=== PATIENT | male | born 2000 | race Two or more races ===

== ENCOUNTER 2023-06-28 08:15 | Outpatient (CLI) | payer OTHER, SELFPAY ==
--- NOTE | 2023-06-28 08:27 | XR_ITS ---
FINAL REPORT CLINICAL HISTORY: Foot pain FINDINGS: LEFT FOOT Three views of the left foot demonstrate no acute fracture or dislocation. The visualized joint spaces are normally aligned. The soft tissues are unremarkable. IMPRESSION: No acute bony abnormality. Reviewed, Interpreted and Dictated by Víctor Wolf MD Transcribed by Melissa Bowden Authenticated and . [facility]
--- NOTE | 2023-06-28 08:27 | XR_ITS ---
FINAL REPORT CLINICAL HISTORY: Foot Pain FINDINGS: RIGHT FOOT 3 views of the right foot were obtained. There is no acute fracture or dislocation. Visualized joint spaces are normally aligned. Soft tissues are unremarkable. IMPRESSION: No acute bony abnormality. Reviewed, Interpreted and Dictated by Víctor Wolf MD Transcribed by Melissa Bowden Authenticated and [facility]
== END 2023-06-28 23:59 ==
LOC: RAD 08:18
PROVIDERS: Visit Provider Podiatrist
DX: M79.671 Pain in right foot (principal); M79.672 Pain in left foot
CPT/HCPCS: 73630

== ENCOUNTER 2023-10-04 10:41 | Outpatient (CLI) | payer OTHER, SELFPAY ==
--- NOTE | 2023-10-04 | CA_ITS ---
FINAL REPORT TECHNIQUE: Spectral and color Doppler exam CLINICAL HISTORY: HTN,SMOKER COMPARISON: None FINDINGS: DOPPLER RENAL VESSELS HISTORY: Hypertension . FINDINGS: Intrarenal resistive indices on the right are 0.44, 0.54, and 0.46, normal . Intrarenal resistive indices on the left are 0.59, 0.53, and 0.61, normal . Renal size is normal and symmetric. Right main renal artery systolic velocity: 165 cm/sec. Aortic-right renal artery flow velocity ratio: 0.73 COMMENT: No evidence of hemodynamically significant renal artery stenosis . Left main renal artery systolic velocity: 136 cm/sec. Aortic-left renal artery flow velocity ratio: 0.6 COMMENT: No evidence of hemodynamically significant renal artery stenosis . IMPRESSION: No evidence of hemodynamically significant renal artery stenosis CTA or gadolinium-enhanced MR may be considered as a more sensitive exam. Alternatively noncontrast MRI may be considered for assessing main renal arteries for stenosis as a more sensitive exam if the patient has renal insufficiency. Reviewed, Interpreted and Dictated by Anand Narayan MD Transcribed by Mely Mcmillan Authenticated and [facility]
== END 2023-10-04 23:59 | disposition home or self-care (01) ==
LOC: RT 10:47
PROVIDERS: PCP Nurse Practitioner Family; Visit Provider Nurse Practitioner Family
DX: I10 Essential (primary) hypertension (principal); F17.290 Nicotine dependence, other tobacco product, uncomplicated
CPT/HCPCS: 93976

== ENCOUNTER 2023-10-20 10:44 | Outpatient (CLI) | payer OTHER, SELFPAY ==
[2023-10-20 11:19] LABS: Basophils % 0.5 % (0.1-2.0); Eosinophils # 0.3 K/mm3 (0.0-0.4); Hematocrit 42.8 % (42.0-52.0); Hemoglobin 14.4 g/dL (14.1-18.0); Lymphocytes # 1.9 K/mm3 (0.7-4.5); Lymphocytes % 22.7 % (10-50); Mean Corpuscular HGB Conc 33.5 g/dL (31.8-35.4); Mean Corpuscular Hemoglobin 28.1 pg (27.0-31.2); Mean Corpuscular Volume 83.7 fl (80-94); Mean Platelet Volume 8.8 fl (7.4-10.4); Monocytes # 0.5 K/mm3 (0.1-1.0); Monocytes % 5.7 % (1.7-9.3); Neutrophils # 5.5 K/mm3 (1.8-7.8); Neutrophils % 67.2 % (37.0-80.0); Platelet Count 335 K/mm3 (142-424); Red Blood Count 5.12 M/mm3 (4.60-6.20); Red Cell Distribution Width 13.9 % (11.5-17.5); White Blood Count 8.2 K/mm3 (4.8-10.8)
[2023-10-20 11:44] LABS: Chloride 105 mmol/L (98-107); Potassium 4.3 mmoL/L (3.5-5.1); Sodium 140 mmol/L (136-145)
[2023-10-20 11:46] LABS: Alanine Aminotransferase 61 U/L (12-78); Albumin Level 4.4 g/dl (3.5-5.0); Alkaline Phosphatase 103 U/L (38-126); Anion Gap 10.3 mEq/L (5-15); Aspartate Amino Transferase 41 U/L (17-59); Bilirubin,Direct 0.2 mg/dl (0.0-0.4); Bilirubin,Indirect 0.1 mg/dL (0.0-0.9); Bilirubin,Total 0.3 mg/dl (0.2-1.3); Bilirubin,Unconjugated 0.1 mg/dL (0.0-1.1); Blood Urea Nitrogen 16 mg/dl (9-20); Carbon Dioxide 29 mmol/L (22.0-30.0); Cholesterol 269 mg/dl (140-200); Estimated Glomerular Filt Rate 104 ml/min (>60); GFR (African American) 125 ML/MIN (>60); Total Protein,Serum 7.5 g/dl (6.3-8.2); Triglycerides 287 mg/dl (30-150); VLDL Cholesterol 57 mg/dL (0-40)
[2023-10-20 11:47] LABS: Calcium 9.8 mg/dl (8.4-10.2); Chol/HDL Ratio 7.9 (1-3.5); Glucose 85 mg/dl (74-100); HDL Cholesterol 34 mg/dl (40-60)
[2023-10-20 12:04] LABS: Direct LDL Cholesterol 164.49 mg/dL (100-129)
[2023-10-20 12:06] LABS: Free T4 (Free Thyroxine) 0.91 ng/dl (0.78-2.19)
[2023-10-20 12:19] LABS: Thyroid Stimulating Hormone 0.85 uIU/mL (0.465-4.68)
== END 2023-10-20 23:59 | disposition home or self-care (01) ==
LOC: LAB 10:49
PROVIDERS: PCP Nurse Practitioner Family; Visit Provider Nurse Practitioner
DX: I10 Essential (primary) hypertension (principal); R07.9 Chest pain, unspecified; R94.31 Abnormal electrocardiogram [ECG] [EKG]
CPT/HCPCS: 36415; 80048; 80061; 80076; 83735; 84439; 84443; 85025

== ENCOUNTER 2023-11-02 10:36 | Outpatient (CLI) | payer OTHER, SELFPAY ==
--- NOTE | 2023-11-02 10:37 | CA_ITS ---
APPROVED REPORT EXAM: Comprehensive 2D, Doppler, and color-flow Echocardiogram Network Intern: Monika Marino RT(R) Ht: 6 ft 1 in Wt: 285lbs BSA: 2.50 BP: 136/75 mmHg Indications: CP, HTN, fatigue, LOPEZ, obesity, vapes, Abn EKG 2D Dimensions LA Volume 39.90 mL LA Volume Index 15.96 mL/m2 (M/F) 16-34 EF AP2 38.7 % GL Strain -10.9 % M-Mode Dimensions RVDd 2.82 cm (0.9-2.6) LA Diam 2.98 cm (1.9-4.0) LVDd 5.18 cm (3.5-5.7) LVDs 3.82 cm (3.5-5.7) IVSd 1.21 cm (0.6-1.1) PWd 0.79 cm (0.6-1.1) EF (Teich) 51.20% FS 26.30% EDV (Teich) 128.40 mL ESV (Teich) 62.70 mL LV Diastology E Decel Time 330 (160-240 msec) E/A Ratio 2.0 Mitral Valve MV E Max Floyd. 88.0 (40-130 cm/s) MV A Velocity 43.0 (40-130 cm/s) E/A Ratio 2.06 MV PHT 97.0 ms Left Ventricle The left ventricle is normal size. The left ventricular systolic function is normal. The left ventricular ejection fraction is within the normal range. There is normal left ventricular wall thickness. There is normal LV segmental wall motion. The left ventricular diastolic function is normal. LVEF is 60%. Right Ventricle The right ventricle is normal size. The right ventricular systolic function is normal. Atria The left atrium size is normal. The right atrium size is normal. There is no Doppler evidence of interatrial shunt. Aortic Valve The aortic valve is normal in structure. There is no aortic valvular stenosis. No aortic regurgitation is present. Mitral Valve The mitral valve is normal in structure. No evidence of mitral valve stenosis. There is no mitral valve regurgitation noted. Tricuspid Valve The tricuspid valve leaflets are thin and pliable. Trace tricuspid regurgitation. There is insufficient TR jet to estimate RVSP. Pulmonic Valve The pulmonary valve is normal in structure. Trace pulmonic regurgitation. Great Vessels The aortic root is normal in size. The ascending aorta is normal in size. IVC is normal in size and collapses >50% with inspiration. Pericardium There is no pericardial effusion. Other Information Study Quality: Adequate Conclusion Normal biventricular systolic function. No significant valvular stenosis or regurgitation. Electronically signed by : Lynn Barroso MD 11/08/2023 11:31:49
== END 2023-11-02 23:59 | disposition home or self-care (01) ==
LOC: RT 10:37
PROVIDERS: PCP Nurse Practitioner Family; Visit Provider Nurse Practitioner
DX: R07.9 Chest pain, unspecified (principal); I10 Essential (primary) hypertension; R94.31 Abnormal electrocardiogram [ECG] [EKG]
CPT/HCPCS: 93306

== ENCOUNTER 2024-05-19 09:54 | Outpatient (CLI) | payer OTHER, SELFPAY ==
--- NOTE | 2024-05-19 09:56 | NM_ITS ---
FINAL REPORT CLINICAL HISTORY: nausea/epigastric pain/postprandial urgency FINDINGS: Sequential anterior projection images of the abdomen were obtained after the intravenous injection of 8.39 mCi technetium 99m Choletec. There is normal uptake of radiotracer by the liver. The bile ducts are visualized by 5 minutes. Gallbladder activity is seen by 35 minutes. Bowel activity is noted by 5 minutes. After 1 hour, 2.6 ?g of CCK was injected intravenously for calculation of gallbladder ejection fraction. The gallbladder ejection fraction is 24%, which is within normal limits. IMPRESSION: No evidence of cystic duct or bile duct obstruction. Abnormal gallbladder ejection fraction of 24%, which is nonspecific but can be seen with chronic cholecystitis. Reviewed, Interpreted and Dictated by Devon Morton III, MD Transcribed by Mely Mcmillan Authenticated and [facility]
[2024-05-19] MEDS: SINCALIDE IV (11:30)
[2024-05-19] MEDS: SODIUM CHLORIDE 0.9% IV (11:30)
[2024-05-19] MEDS: SODIUM CHLORIDE 0.9% 10ML SYR (RAD ONLY) 10 ML IV (12:36)
[2024-05-19] MEDS: ISOTOPE CHOLETECH;1 DOSE (UP TO 15 MCI) IV (12:36)
== END 2024-05-19 23:59 | disposition home or self-care (01) ==
LOC: RAD 09:56
PROVIDERS: PCP Nurse Practitioner Family; Visit Provider Nurse Practitioner Family
DX: R15.2 Fecal urgency (principal); R11.0 Nausea; R10.13 Epigastric pain
CPT/HCPCS: 78227; A9537; J2805

== ENCOUNTER 2024-06-28 10:56 | Outpatient (CLI) | payer OTHER, SELFPAY ==
[2024-06-29 13:09] LABS: Endomysial IgA Antibody Negative (Negative)
[2024-06-29 16:24] LABS: Deamidated Gliadin Abs, IgA 6 units (0-19); Deamidated Gliadin Abs, IgG 3 units (0-19); Tissue Transglutaminase IgA Ab <2 U/mL (0-3); Tissue Transglutaminase IgG Ab 4 U/mL (0-5)
[2024-07-01 08:21] LABS: Reticulin IgA Antibody Negative titer (Neg:<1:2.5)
[2024-07-01 14:13] LABS: Saccharomyces cerevisiae, IgA 63.3 Units (0.0-24.9); Saccharomyces cerevisiae, IgG 82.3 Units (0.0-24.9)
== END 2024-06-28 23:59 | disposition home or self-care (01) ==
LOC: LAB 10:57
PROVIDERS: PCP Nurse Practitioner Family; Visit Provider Nurse Practitioner Family
DX: R10.84 Generalized abdominal pain (principal); R94.8 Abnormal results of function studies of other organs and systems; R19.7 Diarrhea, unspecified
CPT/HCPCS: 36415; 83516; 86255; 86256; 86671

== ENCOUNTER 2024-08-28 11:37 | Day surgery (SDC) | payer OTHER, SELFPAY ==
[2024-08-25 11:38] VITALS: BMI 34.2
[2024-08-28 12:32] VITALS: BP 143/77; PULSE 143; RESP 18; TEMP 36.4; O2SAT 98
[2024-08-28] MEDS: LACTATED RINGERS 1000ML 1,000 ML 50 ML IV (12:39)
--- NOTE | 2024-08-28 12:52 | P.PNANES_ITS ---
[facility] Disclaimer: The information contained in this section may have been updated after the patient was seen, as this information can be updated by other users. Medical History Chest pain HTN (hypertension) Abnormal ECG Surgical History (Updated 08/25/24 @ 11:36 by Nikki Newman RN) No significant past surgical history Family History Father Hypertension Social History Smoking Status: Current some day smoker tobacco type: e-cigarettes alcohol intake: current alcohol intake frequency: a few times a month substance use type: other details: vape marijuana current occupational status: employed Travel in the last 8 weeks: None caffeine: Yes Have you lived/traveled outside [place] in past 30 days?: No Contact w/someone who lives/traveled outside [place] past 30 days?: No Exposure to someone with infectious disease in past 14 days?: No Do you have a fever (greater than 100.4 F or 38 C)?: No Have you tested positive for COVID-19: No Exposed to someone with COVID-19 in past 14 days?: No Do you have a sore throat?: No Do you have a cough?: No Do you have any weakness?: No Do you have any diarrhea?: No Are you experiencing any unusual bleeding?: No Do you have any muscle aches/pain?: No Do you have any abdominal pain?: No Are you experiencing loss of taste or smell?: No [facility] Anesthesia Checklist Patient Identification Patient Identification: Arm Band Structural Data Admitted From: Home Planned Operative Procedure/s: Colonoscopy Consent for Planned Operative Procedure(s) Verified: Yes Verified Documents: Surgical Consent and History and Physical NPO Status Verified Time NPO: 09:00 (finished prep) Additional verifications Anesthesia Reactions: No Airway Assessment Mallampati Score:: Class II C-Spine Mobility Assessed: Yes TMJ Mobility Assessed: Yes Dentition: Poor Dentition Neurological Assessment Level of Consciousness: Awake, Alert and Appropriate Anesthesia Plan Anesthesia Risk discussed: Yes Anesthesia Plan: Verified ASA Class: II Anesthesia Type: MAC
--- NOTE | 2024-08-28 13:23 | EXP.HP ---
History of Present Illness *Admission Date: 08/28/24 *Reason for visit:: Positive Crohn's serologies/diarrhea *History of present illness: Mr. Mclaughlin is a 24-year-old gentleman who is here for diagnostic colonoscopy secondary to diarrhea, lower abdominal discomfort and positive IBD/Crohn's serologies (positive ASCA IgG and IgA antibody). The examination is deemed medically necessary for diagnostic colonoscopy. The patient has been seen, interviewed and examined prior to the procedure by both myself and the anesthesia provider. [facility] Disclaimer: The information contained in this section may have been updated after the patient was seen, as this information can be updated by other users. Medical History (Updated 08/28/24 @ 13:27 by Patricio Erwin II, MD) Chest pain HTN (hypertension) Abnormal ECG Surgical History (Updated 08/25/24 @ 11:36 by Nikki Newman RN) No significant past surgical history Family History Father Hypertension Social History Smoking Status: Current some day smoker tobacco type: e-cigarettes alcohol intake: current alcohol intake frequency: a few times a month substance use type: other details: vape marijuana current occupational status: employed Travel in the last 8 weeks: None caffeine: Yes Have you lived/traveled outside [place] in past 30 days?: No Contact w/someone who lives/traveled outside [place] past 30 days?: No Exposure to someone with infectious disease in past 14 days?: No Do you have a fever (greater than 100.4 F or 38 C)?: No Have you tested positive for COVID-19: No Exposed to someone with COVID-19 in past 14 days?: No Do you have a sore throat?: No Do you have a cough?: No Do you have any weakness?: No Do you have any diarrhea?: No Are you experiencing any unusual bleeding?: No Do you have any muscle aches/pain?: No Do you have any abdominal pain?: No Are you experiencing loss of taste or smell?: No Other Medical History Have you received the Pneumonia Vaccine: No Review of Systems Review of Systems Review of systems (narrative): Negative *Cardiovascular Comments: Negative *Gastrointestinal Comments: Negative *Genitourinary Comments: Negative *Musculoskeletal Comments: Negative *Neurologic Comments: Negative Meds Home Medications and Allergies Home Medications ?Medication ?Instructions ?Recorded ?Confirmed ?Type lisinopril 10 mg tablet 10 mg PO DAILY 06/28/24 08/25/24 History New Prescriptions to Start Prescriptions: Allergies Allergy/AdvReac Type Severity Reaction Status Date / Time No Known Allergies Allergy Verified 06/28/24 10:26 Exam Data for Last 24 hours Vital signs and Labs for Last 24 Hours: Temp Pulse Resp Pulse Ox O2 Del Method 97.6 F 143 H 18 98 Room Air 08/28/24 12:32 08/28/24 12:32 08/28/24 12:32 08/28/24 12:32 08/28/24 12:32 I & O for Last 24 hours: Intake & Output 08/25/24 08/26/24 08/27/24 08/28/24 23:59 23:59 23:59 23:59 Weight 260 lb *Routine HEENT Exam Head: Present normocephalic Eye: Present EOMI and PERRL ENT: Present mucous membranes moist *Routine Neck Exam Neck: Present supple *Routine Respiratory Exam Respiratory: Present CTA bilaterally *Routine Cardiovascular Exam Cardiovascular: Present RRR *Routine Abdominal Exam Abdominal: Present soft and normoactive bowel sounds; Absent tenderness *Routine Rectal Exam Rectal:: deferred *Routine Genitalia Exam Genitalia:: deferred *Routine Extremities Exam Extremities: Absent cyanosis, clubbing or edema *Routine Skin Exam Skin: Present warm; Absent rash *Routine Neurological Exam Neurological: Present alert and oriented X3 Assessment and Plan *Assessment and plan (1) Diarrhea: Status: Acute Category: Medical Code(s): R19.7 - Diarrhea, unspecified (2) Fecal urgency: Status: Acute Category: Medical Code(s): R15.2 - Fecal urgency (3) Bloating: Status: Acute Category: Medical Code(s): R14.0 - Abdominal distension (gaseous) (4) Elevated anti-Saccharomyces cerevisiae antibody: Status: Acute Category: Medical Code(s): R76.8 - Other specified abnormal immunological findings in serum (5) Lower abdominal pain: Status: Acute Category: Medical Code(s): R10.30 - Lower abdominal pain, unspecified Plan A/P: 1. Diarrhea/fecal urgency, bloating and lower abdominal discomfort with positive ASCA IgG and IgA antibody is the preprocedural diagnosis. The patient will be anesthetized/sedated using MAC sedation. The patient has been seen and examined. Cardiac and lung assessment prior to the examination is stable. Proceed with planned diagnostic colonoscopy
--- NOTE | 2024-08-28 13:29 | HMH.PROCNOTE ---
[facility] Procedure Note Date: 08/28/24 Time: 13:44 Procedure Note:: Colonoscopy Procedure Report: Colonoscopy with cold snare polypectomy and cold biopsies Endoscopist: Patricio Erwin II, MD Referring physician: RIA Healy Date of Procedure: August 28, 2024 Equipment: Olympus 190 variable stiffness pediatric colonoscope Sedation: MAC sedation Indication: Mr. Mclaughlin is a 24-year-old gentleman who is here for diagnostic colonoscopy. He has had dyspepsia and abdominal pain which is both right and left-sided. He also has postprandial bowel urgency and diarrhea. He has never had a colonoscopy. He has moderate bloating and gassiness. Initially, this was felt to be possibly gallbladder and his ultrasound of the gallbladder was normal but his HIDA scan showed a borderline low gallbladder ejection fraction of 24%. He has been seen by general surgery (Devon Carvajal). The patient did not have reproduction of symptoms with CCK/Kinevac. The patient did have lab work and his CBC and routine chemistries were essentially normal. However, his IBD serologies were positive with elevated ASCA IgG and IgA (82 and 63 respectively). Colonoscopy is performed for further evaluation. The patient reports no rectal bleeding, weight loss or family history of IBD/Crohn's disease or colon cancer. The patient celiac serologies were normal and the patient had a negative p-ANCA. Procedure: Prior to the procedure, a history and physical exam was performed, and patient's medications and allergies were reviewed. The risks, benefits and alternatives of the sedation and procedure were discussed with the patient. All questions were answered and informed consent was obtained. The patient was brought to the procedure room. Patient identification and proposed procedure were verified by the physician and the nurse. The patient was placed in a left lateral decubitus position and the scope was passed under direct vision. Throughout the procedure, the patient's blood pressure, pulse, and oxygen saturations were monitored continuously. The colonoscopy was accomplished without difficulty. The patient tolerated the procedure well. Findings: On digital rectal examination there was normal rectal tone. There were no external hemorrhoids. The colonoscope was introduced through the anal canal to the rectum and advanced to the cecum. The ileocecal valve and appendiceal orifice were identified. The scope was advanced a short distance into the ileum which appeared grossly normal. The scope was then withdrawn into the colon. The cecum, ascending, transverse, descending and sigmoid colon were grossly normal. Random cold biopsies were taken from the ileum and right colon. There were no mucosal abnormalities identified. Within the rectum there were 3 polyps (1-2 mm, 4 and 4 mm) and these were removed via cold snare polypectomy. Upon retroflexion within the rectum there were grade 1 internal hemorrhoids. The preparation was excellent throughout with [place] Preparation Score of 9. The cecal time was 12 minutes. Impression: 1. Diminutive colonic polyps x 3 Plan: There was no evidence of IBD or Crohn's disease. 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 I will discuss additional dietary measures and treatment options. I will follow-up the biopsies. If the polyps are adenomatous, I would recommend repeat surveillance in 5 years. If the polyps are hyperplastic, he will not require surveillance colonoscopy until age 44.
[2024-08-28 13:36] VITALS: O2SAT 98
[2024-08-28 13:50] VITALS: BP 110/60; PULSE 65; RESP 14; TEMP 36.5; O2SAT 98
[2024-08-28 14:00] VITALS: BP 103/53; PULSE 55; RESP 16; O2SAT 99
[2024-08-28 14:10] VITALS: BP 102/51; PULSE 54; RESP 16; O2SAT 97
[2024-08-28 14:20] VITALS: BP 128/74; PULSE 59; RESP 17; O2SAT 99
== END 2024-08-28 14:49 | disposition home or self-care (01) ==
PROVIDERS: PCP Nurse Practitioner Family; Visit Provider Internal Medicine Gastroenterology
PROC: 0DJD8ZZ Inspection of Lower Intestinal Tract, Via Natural or Artificial Opening Endoscopic (ICD-10-PCS; CPT 45378; principal; 2024-08-28 13:30)
DX: K63.5 Polyp of colon (principal); K64.0 First degree hemorrhoids; R19.7 Diarrhea, unspecified; R15.2 Fecal urgency; R14.0 Abdominal distension (gaseous); R76.8 Other specified abnormal immunological findings in serum; R10.30 Lower abdominal pain, unspecified
CPT/HCPCS: 45380; 45385; J7120

== ENCOUNTER 2025-02-06 10:51 | Outpatient (CLI) | payer OTHER, SELFPAY ==
--- NOTE | 2025-02-06 10:55 | XR_ITS ---
FINAL REPORT CLINICAL HISTORY: injury 2-3 years ago limited range of motion COMPARISON: None FINDINGS: A single view of the left scapula were obtained. There is no acute fracture or dislocation. Visualized joint spaces are normally aligned. Soft tissues are unremarkable. IMPRESSION: No acute bony abnormality. Reviewed, Interpreted and Dictated by Víctor Wolf MD Transcribed by Silvia Stevens Authenticated and [facility]
--- NOTE | 2025-02-06 10:55 | XR_ITS ---
FINAL REPORT CLINICAL HISTORY: BONE DISORDER injury 2-3 years ago pain x 1 months ago limited range of motion COMPARISON: None FINDINGS: LEFT SHOULDER 3 views of the left shoulder were obtained. There is no acute fracture or dislocation. Visualized joint spaces are normally aligned. Soft tissues are unremarkable. IMPRESSION: No acute bony abnormality. Reviewed, Interpreted and Dictated by Víctor Wolf MD Transcribed by Silvia Stevens Authenticated and [facility]
== END 2025-02-06 23:59 | disposition home or self-care (01) ==
LOC: RAD 10:52
PROVIDERS: PCP Nurse Practitioner Family; Visit Provider Nurse Practitioner Family
DX: M89.8X1 Other specified disorders of bone, shoulder (principal)
CPT/HCPCS: 73010; 73030

== ENCOUNTER 2025-03-20 10:53 | Outpatient (RCR) | payer OTHER, SELFPAY | END 2025-03-20 23:59 | disposition home or self-care (01) | LOC: PT 10:53 | PROVIDERS: Visit Provider Nurse Practitioner Family | DX: M89.8X1 Other specified disorders of bone, shoulder (principal) | CPT/HCPCS: 97162 ==

== ENCOUNTER 2025-03-26 07:35 | Outpatient (CLI) | payer OTHER, SELFPAY ==
--- OUTSIDE RECORDS SUMMARY | 2025-03-26 07:50 | XMS_ITS | Data Portability ---
Author Organization [facility] Address [address] [place] [address] Assessment No assessment recorded. Plan of Treatment Reminders Order Date Submit Date Provider Last Modified By Organization Details Last Modified Time Details Appointments None recorded. Lab lipid panel, serum 2023 024 [place] [facility], [address], [place], [place], [address], 4 06:09:16 CMP, serum or plasma 2023 024 [place] [facility], [address], [place], [place], [address], 4 06:09:15 Referral physical therapist referral 2024 025 [facility], [address], [place], [address], 5 14:49:12 cardiologis t referral - morning appointment works shift foreman 2023 024 [place] Feliz Chavez MD, [address], [place], [address], 4 08:27:17 Procedures None recorded. Surgeries None recorded. Imaging XR, shoulder, 2 or more view 2024 025 [facility] (X-[facility]), [address], [place], [address], 5 13:55:09 XR, scapula 2024 025 [facility] ([facility]), [address], [place], [address], 5 13:54:13 US, gallbladder 2023 024 [facility], [address] [place] [address] , [place], [address], 4 08:28:48 US, duplex, renal artery 2023 024 [facility] (X-Ray), [address], [place], [address], 4 13:57:34 Medication Orders lisinopril 10 mg tablet 2024 025 [facility], [address] [place], [address], 5 10:40:30 prednisone 20 mg tablet 2024 025 [facility], [address] [place], [address], 5 05:01:38 lisinopril 10 mg tablet 2023 024 [id number], [address] [address], [place], [place], [id number], 5 10:13:19 amoxicillin 500 mg tablet 2023 024 [facility], [address] [place] [address], [address], 4 10:22:23 Patient TargetsNo targets recorded. 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 METAB OLIC PANEL (14) glucose 112 mg/dL 70-99 above high normal Not Available [facility] ([facility]) [address] [place], [address], 03/21/2024 06:09:15 03/20/2003/21/2024 COMP. METAB OLIC PANEL (14) BUN 8 mg/dL 6-20 normal Not Available [facility] ([facility]) [address] [place], [address], 03/21/2024 06:09:15 03/20/2003/21/2024 COMP. METAB OLIC PANEL (14) creatinine 0.95 mg/dL 0.76-1 .27 normal Not Available [facility] ([facility]) [address] [place], [address], 03/21/2024 06:09:15 03/20/2003/21/2024 COMP. METAB OLIC PANEL (14) eGFR 115 mL/mi n/1.7 3 >59 normal Not Available [facility] ([facility]) [address] [place], [address], 03/21/2024 06:09:15 03/20/20 24 03/21/2024 COMP. METAB OLIC PANEL (14) BUN/creatini ne ratio 8 9-20 below low normal Not Available [facility] ([facility]) [address] [facility] [place], [address], 03/21/2024 06:09:15 03/20/20 24 03/21/2024 COMP. METAB OLIC PANEL (14) sodium 138 mmol/ L 134-14 4 normal Not Available [facility] ([facility]) [address] [facility] [place], [address], 03/21/2024 06:09:15 03/20/20 24 03/21/2024 COMP. METAB OLIC PANEL (14) potassium 4.2 mmol/ L 3.5-5. 2 normal Not Available [facility] ([facility]) [address] [facility], [place], [address], 03/21/2024 06:09:15 03/20/20 24 03/21/2024 COMP. METAB OLIC PANEL (14) chloride 102 mmol/ L 96-106 normal Not Available [facility] ([facility]) [address] [facility] [place], [address], 03/21/2024 06:09:15 03/20/20 24 03/21/2024 COMP. METAB OLIC PANEL (14) carbon dioxide, total 23 mmol/ L 20-29 normal Not Available [facility] ([facility]) [address] [facility] [place], [address], 03/21/2024 06:09:15 03/20/20 24 03/21/2024 COMP. METAB OLIC PANEL (14) calcium 9.7 mg/dL 8.7-10 .2 normal Not Available [facility] ([facility]) [address] [facility] [place], [address], 03/21/2024 06:09:15 03/20/20 24 03/21/2024 COMP. METAB OLIC PANEL (14) protein, total 7.1 g/dL 6.0-8. 5 normal Not Available [facility] ([facility]) [address] [place], [address], 03/21/2024 06:09:15 03/20/2003/21/2024 COMP. METAB OLIC PANEL (14) albumin 4.3 g/dL 4.3-5. 2 normal Not Available [facility] ([facility]) [address] [place], [address], 03/21/2024 06:09:15 03/20/2003/21/2024 COMP. METAB OLIC PANEL (14) globulin, total 2.8 g/dL 1.5-4. 5 Not Available [facility] ([facility]) [address] [place], [address], 03/21/2024 06:09:15 03/20/2003/21/2024 COMP. METAB OLIC PANEL (14) bilirubin, total <0.2 mg/dL 0.0-1. 2 Not Available [facility] ([facility]) [address] [place], [address], 03/21/2024 06:09:15 03/20/2003/21/2024 COMP. METAB OLIC PANEL (14) alkaline phosphatase 117 IU/L 44-121 normal Not Available [facility] [address] [place], [address], 03/21/2024 06:09:15 03/20/2003/21/2024 COMP. METAB OLIC PANEL (14) AST (SGOT) 25 IU/L 0-40 normal Not Available [facility] ([facility]) [address] [place] [place], [address], 03/21/2024 06:09:15 03/20/20 24 03/21/2024 COMP. METAB OLIC PANEL (14) ALT (SGPT) 50 IU/L 0-44 above high normal Not Available [facility] ([facility]) [address] [facility] [place], [address], 03/21/2024 06:09:15 03/20/2003/21/2024 LIPID PANEL cholesterol, total 237 mg/dL 100-19 9 above high normal Not Available [facility] ([facility]) [address] [facility] [place], [address], 03/21/2024 06:09:16 03/20/2003/21/2024 LIPID PANEL triglyceride s 284 mg/dL 0-149 above high normal Not Available [facility] ([facility]) [address] [facility] [place], [address], 03/21/2024 06:09:16 03/20/2003/21/2024 LIPID PANEL HDL cholesterol 29 mg/dL >39 below low normal Not Available [facility] ([facility]) [address] [facility] [place], [address], 03/21/2024 06:09:16 03/20/2003/21/2024 LIPID PANEL VLDL cholesterol zoya 53 mg/dL 5-40 above high normal Not Available [facility] ([facility]) [address] [facility] [place], [address], 03/21/2024 06:09:16 03/20/2003/21/2024 LIPID PANEL LDL chol calc ([facility]) 155 mg/dL 0-99 above high normal Not Available [facility] ([facility]) [address] [facility] [place], [address], 03/21/2024 06:09:16 03/20/2003/21/2024 LIPID PANEL LDL calc comment: STENOTYPIST Not Available [facility] ([facility]) [address] [facility], [place], [address], 03/21/2024 06:09:16 10/04/19 24 10/04/2023 US, duple x, renal arter y No observ ation record ed. [facility] [address], [place], [address], 10/06/2023 11:52:13 11/08/19 24 11/02/2023 US, doppl er echoc ardio gram No observ ation record ed. [id number], [place], [address], 11/08/2023 11:45:19 03/28/20 24 US, gallb ladde r No observ ation record ed. [address] , [place], [address], 03/28/2024 18:32:44 05/19/20 24 05/19/2024 NM, hepat obili steffanie scan No observ ation record ed. [address] [place] [address], [place], [address], 05/22/2024 08:39:33 02/07/20 25 02/06/2025 XR, scapu la No observ ation record ed. [address] [place] [address], [place], [address], 02/07/2025 10:58:17 02/07/20 25 02/06/2025 XR, shoul bessie, 2 or more view No observ ation record ed. [address] [place] [address], [address], 02/07/2025 10:58:17 Result Notes None recorded. Problems Name Problem SNOMED Code Status Onset Date Resolution Date Notes Provider Name and Address Organization Details Recorded Time Hypertensive disorder 47840064 Active 2023 [place] - [facility] 10:21:45 Problem Notes None recorded. Procedures Surgical History Date Name Laterality Status Provider Name and Address Organization Details Recorded Time tooth extraction completed Justine AYALA - [facility] 02/19/2023 10:53:45 Imaging Results None recorded. Procedure Notes None recorded. Medical Equipment None Reported. Allergies No known drug allergies Medications Name Sig Start Date Stop Date Status Note LastModified by Organization Details LastModified Time amoxicill in 500 mg capsule TAKE ONE (1) CAPSULE TWICE A DAY BY ORAL ROUTE FOR 10 DAYS. 09/13 completed Not Available Not Available Not Available ibuprofen 800 mg tablet TAKE 1 TABLET BY MOUTH EVERY 6 TO 8 HOURS 01/26 completed Not Available Not Available Not Available valacyclo vir 1 gram tablet TAKE 1 TABLET BY MOUTH EVERY 8 HOURS FOR 7 DAYS 08/23 completed Not Available Not Available Not Available Keflex 500 mg capsule take 1 capsule (500 mg) by oral route every 6 hours for 10 days 01/26 completed Keflex 500 mg oral capsule; Recorded Status: Recorded on: 11/17/19 12 11:09AM; Disconti nued Status: Disconti nued on: 01/27/20 12 10:09AM; User: [email or web address] alvarez;Est. Completi on: 11/27/19 12;Print ed: 11/17/19 12 Not Available Not Available Not Available prednison e 20 mg tablet Take 1 tablet twice a day by oral route for 5 days. 02/07 completed Not Available Not Available Not Available penicilli n V potassium 500 mg tablet TAKE 1 TABLET BY MOUTH FOUR TIMES DAILY TAKE UNTIL RX IS FINISHED 03/20 completed Not Available Not Available Not Available amoxicill in 500 mg tablet Take 1 tablet twice a day by oral route for 10 days. 09/13 completed Not Available Not Available Not Available amitripty line 25 mg tablet take 1 tablet (25 mg) by oral route once daily at bedtime for 30 days 10/14 completed amitript yline 25 mg oral tablet;R ecorded Status: Recorded on: 04/26/20 15 10:55AM; Disconti nued Status: Disconti nued on: 10/15/19 16 3:33PM;U ser: [email or web address]; Est. Completi on: 06/25/19 16;Indic ation: New daily persiste nt headache - (339.42) ;Printed : 04/26/20 15 Not Available Not Available Not Available Zoloft 50 mg tablet take 1 tablet (50 mg) by oral route once daily for 30 days 11/13 completed Zoloft 50 mg oral tablet;R ecorded Status: Recorded on: 10/15/19 16 3:40PM;U ser: [email or web address] [email or web address];Est. Completi on: 11/14/19 16;Print ed: 10/15/19 16 Not Available Not Available Not Available Bactroban 2 % topical ointment apply a small amount to the affected area by topical route 3 times per day 01/26 completed Bactroba n 2 % topical ointment ;Recorde d Status: Recorded on: 11/17/19 12 11:09AM; Disconti nued Status: Disconti nued on: 01/27/20 12 10:09AM; User: [email or web address] alvarez;Indica tion: Impetigo - (32.6010 00);Prin guille: 11/17/19 12 Not Available Not Available Not Available Zithromax 200 mg/5 mL oral suspensio n take 10 millilit ers by oral route QD x 1, then 5 cc's po qd x 4 03/13 completed Zithroma x 200 mg/5 mL oral suspensi on for reconsti tution;R ecorded Status: Recorded on: 02/22/20 09 4:54PM;D iscontin ued Status: Disconti nued on: 03/13/20 11 12:55PM; User: walter Not Available Not Available Not Available lisinopri l 10 mg tablet Take 1 tablet every day by oral route. 2024 active Not Available Not Available Not Avai lable amoxicill in 400 mg/5 mL oral suspensio n take 10 millilit ers by oral route 2 times a day for 10 days 11/16 completed amoxicil olga 400 mg/5 mL oral suspensi on for reconsti tution;R ecorded Status: Recorded on: 09/23/19 12 10:04AM; Disconti nued Status: Disconti nued on: 11/17/19 12 10:55AM; User: tarun gainesEst. Completi on: 10/03/19 12;Print ed: 09/23/19 12 Not Available Not Available Not Available ergocalci ferol (vitamin D2) 1,250 mcg (50,000 unit) capsule TAKE 1 CAPSULE BY MOUTH EVERY WEEK 06/11 completed Not Available Not Available Not Available TobraDex 0.3 %-0.1 % eye drops,hugo pension instill 1 drop into affected eye(s) by ophthalm ic route every 6 hours 11/16 completed TobraDex 0.3-0.1 % ophthalm ic drops,dey spension ;Recorde d Status: Recorded on: 09/23/19 12 10:04AM; Disconti nued Status: Disconti nued on: 11/17/19 12 10:55AM; User: [email or web address] b;Indica tion: Ocular Inflamma tion - (7114 );Prin guille: 09/23/19 12 Not Available Not Available Not Available ProAir HFA 90 mcg/actua tion aerosol inhaler inhale 2 puffs by inhalati on route 4 times a day as needed 03/13 completed ProAir HFA 90 mcg/actu ation inhalati on HFA aerosol inhaler; Recorded Status: Recorded on: 02/22/20 09 4:54PM;D iscontin ued Status: Disconti nued on: 03/13/20 11 12:55PM; User: walter; Indicati on: Bronchit is - (1778 00) Not Available Not Available Not Available Systane Nighttime 94 %-3 % eye ointment APPLY TO RIGHT EYE EVERY 4-6 HOURS FOR 2 WEEKS 08/23 completed Not Available Not Available Not Available GaviLyte- G 236 gram-22.7 4 gram-6.74 gram-5.86 gram oral solution DRINK DIRECTED WITH COLON PREP WORK SHEET 01/26 completed Not Available Not Available Not Available Vitals Date Recorded Body height Respiratory rate Body mass index (BMI) Body weight Heart rate Body temperature Oxygen saturation Oxygen saturation in Arterial blood by Pulse oximetry Systolic And Diastolic Provider Name and Address Organization Details Last Updated DateTime 4 186.69 cm 18 /min 36.8 kg/m2 611637. 64 g 80 /min 97.8 [degF] 96 % 96 % 158/86 mm[Hg] Justine Stears [place] - [facility] 4 09:37:22 Date Recorded Body height Respiratory rate Body mass index (BMI) Body weight Heart rate Oxygen saturation Oxygen saturation in Arterial blood by Pulse oximetry Body temperature Systolic And Diastolic Provider Name and Address Organization Details Last Updated DateTime 4 186.69 cm 18 /min 37.5 kg/m2 205528. 6 g 78 /min 97 % 97 % 98.1 [degF] 136/80 mm[Hg] Justine Stears [place] - [facility] 4 10:26:40 Date Recorded Body height Body mass index (BMI) Body weight Heart rate Oxygen saturation Oxygen saturation in Arterial blood by Pulse oximetry Respiratory rate Body temperature Systolic And Diastolic Provider Name and Address Organization Details Last Updated DateTime 4 186.69 cm 37.7 kg/m2 828542. 79 g 82 /min 98 % 98 % 18 /min 97.8 [degF] 144/76 mm[Hg] Justine Stears [place] - [facility] 4 13:06:33 Date Recorded Body height Respiratory rate Body mass index (BMI) Body weight Heart rate Oxygen saturation Oxygen saturation in Arterial blood by Pulse oximetry Body temperature Systolic And Diastolic Provider Name and Address Organization Details Last Updated DateTime 5 186.69 cm 18 /min 36.4 kg/m2 729311. 86 g 68 /min 98 % 98 % 97.9 [degF] 160/84 mm[Hg] Justine Stears [place] - [facility] 5 10:10:15 Date Recorded Body height Body mass index (BMI) Body weight Body temperature Heart rate Oxygen saturation Oxygen saturation in Arterial blood by Pulse oximetry Respiratory rate Pain severity - 0-10 verbal numeric rating [Score] - Reported Systolic And Diastolic Provider Name and Address Organization Details Last Updated DateTime 4 186.69 cm 36.8 kg/m2 582960. 34 g 98 [degF] 79 /min 98 % 98 % 18 /min 0 132/78 mm[Hg] Geno Martin [place] - [facility] 4 11:31:29 Social History Question Answer Notes LastModified by Organizat ion Details LastModified Time Tobacco Smoking Status Former Smoker Justine [place] null, [place] - [facility] 02/19/2023 10:52:41 Do You Have An Advance Directive? No Information not available 02/19/2023 Are You Blind Or Do You Have Difficulty Seeing? No Information not available 02/19/2023 Is Blood Transfusion Acceptable In An Emergency? Yes Information not available 02/19/2023 What Is Your Level Of Caffeine Consumption? Moderate Information not available 02/19/2023 How Much Tobacco Do You Chew? None Information not available 02/19/2023 In The 14 Days Before Symptom Onset, Have You Had Close Contact With A Laboratory-confir med COVID-19 While That Case Was Ill? No Information not available 03/25/2023 In The 14 Days Before Symptom Onset, Have You Had Close Contact With A Person Who Is Under Investigation For COVID-19 While That Person Was Ill? No Information not available 03/25/2023 Have You Been To An Area Known To Be High Risk For COVID-19? No Information not available 03/25/2023 Are You Deaf Or Do You Have Serious Difficulty Hearing? No Information not available 02/19/2023 What Type Of Diet Are You Following? REGULAR Information not available 02/19/2023 Which Illicit Or Recreational Drugs Have You Used? None Information not available 02/19/2023 Have You Processed Blood Or Body Fluids From An Ebola Virus Disease Patient Without Appropriate PPE? No Information not available 03/25/2023 Do You Reside In Or Have You Traveled To An Area Where Ebola Virus Transmission Is Active? No Information not available 03/25/2023 What Is The Highest Grade Or Level Of School You Have Completed Or The Highest Degree You Have Received? [id number] Information not available 02/19/2023 Have There Been Any Changes To Your Family Or Social Situation? No Information no t available 02/19/2023 What Is The Fluoride Status Of Your Home? Unknown Information not available 02/19/2023 When Did You Quit Smoking? 1-5yearssinc elastcigaret te Last Had One At Age 21 Information not available 02/19/2023 Have You Recently Or Are You Planning To Travel To An Area With Zika Virus? No Information not available 03/25/2023 Do You Have A Medical Power Of Timber Selector? No Information not available 02/19/2023 What Was The Date Of Your Most Recent Tobacco Screening? 01/26/2025 Information not available 01/26/2025 What Is Your Current Pack Years? 10-19packyea rs Information not available 02/19/2023 Do You Use Protection Against STDs? Usually Information not available 02/19/2023 What Is Your Relationship Status? Single Information not available 02/19/2023 Do You Use Your Seat Belt Or Car Seat Routinely? Yes Information not available 02/19/2023 Are You Sexually Active? Yes Information not available 02/19/2023 Do You Have Smoke And Carbon Monoxide Detectors In Your Home? Yes Information not available 02/19/2023 At What Age Did You Start Smoking Tobacco? 14 Information not available 02/19/2023 Are You Passively Exposed To Smoke? No Information no t available 02/19/2023 How Much Tobacco Do You Smoke? No Information not available 02/19/2023 Do You Use Sunscreen Routinely? No Information not available 02/19/2023 Has Tobacco Cessation Counseling Been Provided? No Information not available 02/19/2023 How Many Years Have You Smoked Tobacco? 7 Information not available 02/19/2023 Do You Have Difficulty Walking Or Climbing Stairs? No Information not available 02/19/2023 How Many Years Have You Used E-cigarettes Or Vape? 3 Information not available 01/26/2025 Which Type Of Protection Is Used? Condoms Information not available 02/19/2023 Sex: Male Functional Status Question Answer Note LastModified by Organization Details LastModified Time How many times per week do you consume alcohol? 1-2 times per week Information not available 02/19/2023 Do you or have you ever used smokeless tobacco? Never used smokeless tobacco Information not available 02/19/2023 Are you currently employed? Yes Information not available 02/19/2023 Do you have transportation difficulties? No Information not available 02/19/2023 Are you able to care for yourself independently? Yes Information not available 02/19/2023 Do you have difficulty dressing, bathing, grooming, or toileting? No Information not available 02/19/2023 Do you or have you ever used e-cigarettes or vape? Current user of electronic cigarettes occasionally per pt Information not available 01/26/2025 What is your exercise level? Moderate Information not available 02/19/2023 Do you use any illicit or recreational drugs? No Information not available 02/19/2023 Do you or have you ever used any other forms of tobacco or nicotine? Yes Information not available 02/19/2023 What is your level of alcohol consumption? Occasional Information not available 02/19/2023 Are you able to walk independently without assistance or assistive devices? YESWOREST Information not available 02/19/2023 Do you have difficulty doing errands alone? No Information not available 02/19/2023 What is your occupation? [employer] Information not available 08/24/2023 Mental Status Question Answer Note LastModified by Organizat ion Details LastModified Time Do you feel stressed (tense, restless, nervous, or anxious, or unable to sleep at night)? [id number] Information not available 02/19/2023 Do you have difficulty concentrating, remembering or making decisions? No Information no t available 02/19/2023 Family History Relationship Description Onset Age of this Age Resolved Age Notes LastModified by Organization Details LastModified Time Father No current problems or disability bstears Not available 02/19 10:50:48 Mother No current problems or disability bstears Not available 02/19 10:50:48 Medical History No medical history recorded. Immunizations Vaccine Type Date Status Note Provider Nam e and Address Organization Details Recorded Time Hib-Hep B 1 completed LUCY Blum - [facility] 03/25/2023 08:22:55 Hib-Hep B 0 completed LUCY Blum - [facility] 03/25/2023 08:22:55 Hib-Hep B 0 completed Geno Mario null, [place] - [facility] 03/25/2023 08:22:55 HPV9 8 completed [place] [facility] 03/25/2023 08:22:55 IPV 1 completed [place] [facility] 03/25/2023 08:22:55 IPV 0 completed [place] [facility] 03/25/2023 08:22:55 IPV 4 completed [place] [facility] 03/25/2023 08:22:55 IPV 0 completed [place] [facility] 03/25/2023 08:22:55 MMR 4 completed [place] [facility] 03/25/2023 08:22:55 MMR 1 completed [place] [facility] 03/25/2023 08:22:55 COVID-19, mRNA, LNP-S, PF, 100 mcg/0.5mL dose or 50 mcg/0.25mL dose 1 completed [place] [facility] 03/25/2023 08:22:55 COVID-19, mRNA, LNP-S, PF, 100 mcg/0.5mL dose or 50 mcg/0.25mL dose 1 completed [place] [facility] 03/25/2023 08:22:55 Tdap 1 completed [place] [facility] 03/25/2023 08:22:55 varicella 1 completed [place] [facility] 03/25/2023 08:22:55 varicella 1 completed [place] [facility] 03/25/2023 08:22:55 Hep A, adult 9 completed [place] [facility] 03/25/2023 08:22:55 Hep A, ped/adol, 2 dose 8 completed [place] [facility] 03/25/2023 08:22:55 meningococcal MCV4P 8 completed [place] [facility] 03/25/2023 08:22:55 DTaP, unspecified formulation 0 completed [place] [facility] 03/25/2023 08:22:55 DTaP, unspecified formulation 4 completed [place] [facility] 03/25/2023 08:22:55 DTaP, unspecified formulation 1 completed [place] [facility] 03/25/2023 08:22:55 DTaP, unspecified formulation 0 completed [place] [facility] 03/25/2023 08:22:55 DTaP, unspecified formulation 0 completed [place] [facility] 03/25/2023 08:22:55 meningococcal MCV4, unspecified formulation 1 completed Geno [place] - [facility] 03/25/2023 08:22:55 Past Encounters Encounter ID Performer Location Encounter Start Date Encounter Closed Date Diagnosis/Indication Diagnosis SNOMED-CT Code Diagnosis ICD10 Code Diagnosis IMO Codes Diagnosis Note [id number] Juliet Lozano APRN [address] [id number] 02/19/2023 10:35:55 02/19/2023 11:42:02 Body mass index 30+ - obesity 398356920 Z68.34 34 Obesity 137205408 E66.9 Influenza caused by Influenza B virus 49227490 J10.1 no sign of a bacterial infection. likely viral. viruses can take 7-14 days to run their course.kristopher al saline and bulb syringe to remove nasal drainage to help with congestion .monitor temp. Tylenol or Motrin as needed for pain or fever.enco urage fluids, water, Gatorade, power aide, Pedialyte if /tod dler/child warm salt water gargleswar m fluidssore throat lozengessl eep elevatedhu midifier/v aporizerfo llow up immediatel y for new or worsening symptoms or no noticeable improvemen t over the next 48-72 hours Dizzy spells 522020537 R 42 Fatigue 62169813 R53.83 [id number] [place] 0639664-[address] 1 03/25/2023 08:19:53 03/25/2023 09:34:19 Liver enzymes level above reference range 865257857 R74.8 Vitamin D deficiency 347 74626 E55.9 will recheck vit d level [id number] Juliet [place] 0639664[address] 1 06/11/2023 09:16:35 06/11/2023 10:52:55 Pain in left foot 9205128390 63532 M79.351 [id number] [facility] [place] 0639664[address] 1 08/24/2023 09:26:14 08/24/2023 10:08:18 Dental abscess 829553576 K04.7 Hypertensive disorder 38 342348 I10 keep log bring to appointmen t [id number] [facility] [place] 0639664[address] 1 09/14/2023 10:12:32 09/14/2023 10:39:41 Elevated blood-pressure reading without diagnosis of hypertension 277397934 R03.0 keep log, check bp twice a day bring log to appointmen tif any concerns return [id number] Juliet Feliznino[address] [address] 09/27/2023 13:00:11 09/27/2023 13:12:19 Hypertensive disorder 06841319 I10 keep log bring to appointmen tmed discussed with pt in detailany concerns returnfoll ow up with cardiology [id number] [facility] L[facility] [address] 03/20/2024 11:12:32 03/20/2024 11:55:06 Adult health examination 121857732 Z00.00 Right uppe r quadrant pain 983581665 R10.11 bland diet-us gallbladde rif worsen or no improvemen t return Hypertensive disorder 38 437192 I10 keep log bring to appointmen tmed discussed with pt in detailany concerns return [id number] Juliet Lozano APRN [facility] [address] [place] [address] 01/26/2025 10:00:36 01/26/2025 10:47:38 Obese class II [id number] 48386 E66.812 Z68.36 9812464 36.4 Pain of le ft shoulder blade 904227297 M89.8X1 02856167 xrays-ptpo ss mri- r/o nerve impingemen t Hypertensive disorder 38 276686 I10 keep log bring to appointmen tmed discussed with pt in detailany concerns return Health Concerns Section Related Observation LastModified by Organization Detai ls LastModified Time None Recorded Concern Status LastModified by Organization Details LastModified Time None Recorded Advance Directives Directive N: Payers Insurance Date Sequence Insurance Name Policy Number Policy Billings Covered Member ID Billings Member ID Guarantor Name 01/25/2025 [place] [employer] [place] Alonso Mclaughlin [id number] Lyudmila Mclaughlin 02/08/2024 3 [place] [id number] Alonso Mclaughlin [id number] Lyudmila Mclaughlin 01/26/2025 2 [facility] Alonso Mclaughlin [id number] Lyudmila Mclaughlin 01/21/2024 1 [employer] [id number] Alonso Mclaughlin [id number] Lyudmila Mclaughlin Notes Date Note Type Note Provider Name and Address Organization Details Recorded Time 08/24/2023 text/html ROS as noted in the HPI 22 year old male who presents to the office today with concerns ofhypertension- states has checked BP at home and has been highalso having dental pain and swelling Juliet Lozano APRN [address], [place], [address], [place] - [facility] 08/30/2023 08:56:17 09/14/2023 text/html ROS as noted in the HPI 23 year old male who presents to the office today for a follow up onhypertension. pt states he has not been checking it like he should. pt states a few times he checked it it was 120/? a couple times and then 140/? once. Juliet SINCERE oneill [address], [place], [address], [place] - [facility] 09/14/2023 10:40:11 09/27/2023 text/html ROS as noted in the HPI 23 year old male who presents to the office today for a follow up onhypertension. brought in log from home readings they range from 131/74-159/82 Juliet Lozano APRN [address], [place], [address], [place] - [facility] 09/27/2023 13:15:11 03/20/2024 text/html ROS as noted in the HPI 23 yr old male presents for an employment physical and having rt upper quad pain. pt states pain worse with eating greasy or spicy food Juliet Lozano APRN [address], [place], [address], [place] - [facility] 03/20/2024 11:50:00 01/26/2025 text/html ROS as noted in the HPI 24 year old male who presents to the office today with concerns ofleft shoulder/shoulder blade pain x 1 monthBP today is 160/84, states stopped taking lisinopril long time ago Darianalina SINCERE oneill [address], [place], [address], [place] - [facility] 01/26/2025 10:41:48
--- OUTSIDE RECORDS SUMMARY | 2025-03-26 07:50 | XMS_ITS | Data Portability ---
Author Organization [place] - [facility] Address [address] [place] [address] Assessment No assessment recorded. Plan of Treatment Reminders Order Date Submit Date Provider Last Modified By Organization Details Last Modified Time Details Appointments None record ed. Lab None record ed. Referral None record ed. Procedures None record ed. Surgeries None record ed. Imaging None record ed. Medication Orders None record ed. Patient TargetsNo targets recorded. Patient Instructions Encounter Date Encounter Id Patient Instructions Last Modified By Organization Details Last Modified Time 07/15/2023 [id number] I have personall y reviewed the data obtained and entered from the scribe, medical office clerk or nurse for this patient for this patient encounter. Discussed with patient. Patient to consider audiogram. Patient with residual palsy may take another 3-4 weeks to resolve. Patient to follow-up after audiogram. Not available 07/15/2023 08:30:33 08/18/2023 [id number] I have personall y reviewed the data obtained and entered from the scribe, medical office clerk or nurse for this patient for this patient encounter. Discussed with the patient. Patient with improvement. Audiologic thresholds within normal limits. Patient to follow-up as needed. Not available 08/18/2023 09:21:04 Reason for Referral None Reported. Results Created Date Observation Date Name Description Value Unit Range Abnormal Flag Note LastModifiedBy Organization Detail LastModifiedTime 08/18/19 24 08/18/2023 audio gram No observ ation record ed. [email or web address] Not Available 2023 09:05:30 Result Notes None recorded. Medical Equipment None Reported. Medications Name Sig Start Date Stop Date Status Note LastModified by Organization Details LastModified Time ibuprofen 800 mg tablet TAKE 1 TABLET BY MOUTH EVERY 6 TO 8 HOURS active Not Available Not Available No t Available valacyclovir 1 gram tablet TAKE 1 TABLET BY MOUTH EVERY 8 HOURS FOR 7 DAYS active Not Available Not Available No t Available prednisone 20 mg tablet TAKE 3 TABLETS BY MOUTH DAILY WITH FOOD FOR 7 DAYS THEN 2 TABLETS DAILY FOR 7 DAYS THEN 1 TABLET FOR 7 DAYS active Not Available Not Available No t Available penicillin V potassium 500 mg tablet TAKE 1 TABLET BY MOUTH FOUR TIMES DAILY UNTIL GONE active Not Available Not Available No t Available ergocalciferol (vitamin D2) 1,250 mcg (50,000 unit) capsule TAKE 1 CAPSULE BY MOUTH EVERY WEEK active Not Available Not Available No t Available Systane Nighttime 94 %-3 % eye ointment APPLY TO RIGHT EYE EVERY 4-6 HOURS FOR 2 WEEKS active Not Available Not Available No t Available Vitals Date Recorded Body height Body mass index (BMI) Body weight Provider Name and Address Organization Details Last Updated DateTime 07/15/2023 185.42 cm 35.1 kg/m2 721681.[address] [facility] [place] 07/15/2023 08:12:33 Date Recorded Body height Body mass index (BMI) Body weight Provider Name and Address Organization Details Last Updated DateTime 08/18/2023 185.42 cm 35.2 kg/m2 579877.[address] [facility] [place] 08/18/2023 09:15:46 Social History None recorded. Functional Status None recorded. Mental Status None recorded. Family History Nothing Reported. Medical History No medical history recorded. Past Encounters Encounter ID Performer Location Encounter Start Date Encounter Closed Date Diagnosis/Indication Diagnosis SNOMED-CT Code Diagnosis ICD10 Code Diagnosis IMO Codes Diagnosis Note [id number] MD BUCK Bautista [address] HOLMAN [address] [place] [address] 07/15/2023 07:52:17 07/15/2023 08:27:06 Facial palsy 355133930 G51.0 [id number] MD BUCK Bautista [address] HOLMAN [address] [place] [address] 08/18/2023 08:55:45 08/18/2023 09:27:40 Facial palsy 352416471 G51.0 [id number] BLANCA MIN [address] [place] [address] 08/18/2023 08:55:16 08/18/2023 09:05:39 Hearing examination 489657011 Z01.10 Health Concerns Section Related Observation LastModified by Organization Detai ls LastModified Time None Recorded Concern Status LastModified by Organization Details LastModified Time None Recorded Advance Directives Directive None Recorded Payers Insurance Date Sequence Insurance Name Policy Number Policy Billings Covered Member ID Billings Member ID Guarantor Name 09/01/2023 2 [employer] [facility] (MEDICAID HMO) Alonso Mclaughlin [id number] Alonso Mclaughlin 08/31/2023 1 [employer] [id number] Alonso Mclaughlin [id number] Alonso Mclaughlin Notes Date Note Type Note Provider Name and Address Organization Details Recorded Time 07/15/2023 text/html Patient is here for bells palsy, states he was diagnosed in the ER but has since resolved. Patient presents in follow-up. Dheeraj Hernandez MD [address] [place] [address],[address], [place], [address], [facility] & [place] 07/15/2023 08:31:03 08/18/2023 text/html Mr. Mclaughlin was seen today for an audiologic evaluation following facial palsy on his R side per Dr. Dheeraj Hernandez MD. Mr. Mclaughlin reports that his palsy has improved significantly. He denies hearing loss, dizziness, tinnitus, and aural fullness/pressure. Otoscopic inspection was unremarkable bilaterally. Audiometric testing revealed normal hearing thresholds with good word rec scores bilaterally. Type A Tympanogram bilaterally 1-Discussed findings with Dr. Hernandez and Mr. Mclaughlin. 2-F/u with Dr. Hernandez this date. BLANCA MIN [address] [place] [address],[address], [place], [address], [facility] & [place] 08/18/2023 09:05:33 08/18/2023 text/html Patient is here for follow up, states his facial palsy has resolved. Patient presents in follow-up. Dheeraj Hernandez MD [address] [place] [address],[address], [place], [address], [facility] & [place] 08/18/2023 09:21:31
--- OUTSIDE RECORDS SUMMARY | 2025-03-26 07:51 | XMS_ITS | Continuity of Care Document ---
[facility] Address [address] [place] [address] Assessment No assessment recorded. Plan of Treatment Reminders Order Date Submit Date Provider Last Modified By Organization Details Last Modified Time Details Appointments None recorded. Lab None recorded. Referral physical therapist referral 2024 025 [facility], [address], [place], [address], 5 14:49:12 Procedures None recorded. Surgeries None recorded. Imaging XR, shoulder, 2 or more view 2024 025 [facility] (X-Ray), [address], [place], [address], 5 13:55:09 XR, scapula 2024 025 [facility] (X-Ray), [address], [place], [address], 5 13:54:13 Medication Orders lisinopril 10 mg tablet 2024 025 [facility] [address] [facility] [place], [address], 5 10:40:30 prednisone 20 mg tablet 2024 025 [facility] [address] [place], [address], 5 05:01:38 Patient TargetsNo targets recorded. Patient Instructions Encounter Date Encounter Id Patient Instructions Last Modified By Organization Details Last Modified Time 01/26/2025 [id number] learning about healthy weight gabi Not available 01/26/2025 10:40:25 body mass index: care instructions [email or web address] Not available 01/26/2025 10:40:25 Reason for Referral Physical Therapist Referral for Pain of left shoulder blade Referring Physician: Juliet Lozano, Family Medicine, Encounter Date: 01/26/2025 Results Created Date Observation Date Name Description Value Unit Range Abnormal Flag Note LastModifiedBy Organization Detail LastModifiedTime 02/07/2002/06/2025 XR, scapu la No observ ation record ed. [facility] [address], [place], [address], 02/07/2025 10:58:17 02/07/2002/06/2025 XR, shoul bessie, 2 or more view No observ ation record ed. [facility] [address], [place], [address], 02/07/2025 10:58:17 Result Notes None recorded. Problems Name Problem SNOMED Code Status Onset Date Resolution Date Notes Provider Name and Address Organization Details Recorded Time Hypertensive disorder 55871881 Active 2023 [place] - [facility] 4 10:21:45 Problem Notes None recorded. Procedures Surgical [...] alvarez;Est. Completi on: 11/27/19 12;Print ed: 11/17/19 Not Available Not Available Not Available prednison [...] Disconti nued on: 01/27/20 12 10:09AM; User: [email or web address] [email or web address];Indica tion: Impetigo - (51.8929 00);Prin guille: 11/17/19 12 Not Available Not [...] nued on: 11/17/19 12 10:55AM; User: [email or web address] alvarez;Est. Completi on: 10/03/19 12;Print ed: 09/23/19 12 [...] 11/16 completed TobraDex 0.3-0.1 % ophthalm ic drops,tiburcio hay ;Recorde d Status: Recorded on: 09/23/19 12 10:04AM; Disconti nued Status: Disconti nued on: 11/17/19 12 10:55AM; User: [email or web address] b;Indica tion: Ocular Inflamma tion - (3799 );Prin guille: 09/23/19 12 Not Available Not Available Not Available ProAir HFA 90 mcg/actua tion aerosol inhaler inhale 2 puffs by inhalati on route 4 times a day as needed 03/13 completed ProAir HFA 90 mcg/actu ation inhalati on HFA aerosol inhaler; Recorded Status: Recorded on: 02/22/20 09 4:54PM;D iscontin ued Status: Disconti nued on: 03/13/20 11 12:55PM; User: [email or web address]; Indicati on: Bronchit is - (4900 ) Not Available Not Available Not Available Systane [...] 5 186.69 cm 18 /min 36.4 kg/m2 775171. 86 g 68 /min 98 % 98 % 97.9 [degF] 160/84 mm[Hg] Justine Yue [place] - [facility] 5 10:10:15 Social History Question Answer Notes LastModified by [...] Or The Highest Degree You Have Received? IV12267-2 Information not available 02/19/2023 Have There Been [...] Do You Have A Medical Power Of Glassware Finisher? 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 AO11092-2 Information not available 02/19/2023 Do you have [...] Details Recorded Time Hib-Hep B 1 completed Geno Martin null, [place] - [facility] 03/25/2023 08:22:55 Hib-Hep B 0 completed Geno moser, [place] - [facility] 03/25/2023 08:22:55 Hib-Hep B 0 completed Geno Martin null, [place] - [facility] 03/25/2023 08:22:55 HPV9 [...] meningococcal MCV4, unspecified formulation 1 completed Geno Mraio null, [place] - [facility] 03/25/2023 08:22:55 Past Encounters Encounter ID Performer Location Encounter Start Date Encounter Closed Date Diagnosis/Indication Diagnosis SNOMED-CT Code Diagnosis ICD10 Code Diagnosis IMO Codes Diagnosis Note [id number] Juliet Lozano APRN [address] [address] 01/26/2025 10:00:36 01/26/2025 10:47:38 Obese class II 4363225701 02614 E66.812 Z68.36 6481657 36.4 Pain of le ft shoulder blade 302555444 M89.8X1 50615945 xrays-ptpo ss mri- r/o nerve impingemen t Hypertensive disorder 38 495147 I10 keep log bring to appointmen tmed discussed with pt in detailany concerns return Health Concerns Section Related Observation LastModified by Organization Detai ls LastModified Time None Recorded Concern Status LastModified by Organization Details LastModified Time None Recorded Payers Encounter Date Sequence Insurance Name Policy Number Policy Billings Covered Member ID Billings Member ID Guarantor Name 01/26/2025 1 [employer] [id number] Alonso Mclaughlin [id number] Lyudmila Mclaughlin Notes Date Note Type Note Provider Name and Address Organization Details Recorded Time 01/26/2025 text/html ROS as noted in the HPI 24 year old male who presents to the office today with concerns ofleft shoulder/shoulder blade pain x 1 monthBP today is 160/84, states stopped taking lisinopril long time ago Juliet Lozano, APPEALS BOARD REFEREE [address], [place], [address], [place] [facility] 01/26/2025 10:41:48
--- NOTE | 2025-03-26 08:00 | US_ITS ---
FINAL REPORT TECHNIQUE: Multiple transverse and longitudinal images CLINICAL HISTORY: RUQ pain COMPARISON: None FINDINGS: The gallbladder shows no wall thickening, distention or stone disease. No biliary ductal dilatation is appreciated. No fluid collections are seen. There are fatty in the liver, with hypoechoic foci in the posterior aspect of the left lobe of the liver, that most likely represent focal fatty sparing. Pancreas is largely obscured. IMPRESSION: 1. No evidence of cholelithiasis 2. Fatty changes of the liver with hypoechoic areas in the posterior left liver that are likely foci of focal fatty sparing. Reviewed, Interpreted and Dictated by Anand Narayan MD Transcribed by Mely Mcmillan Authenticated and . [facility]
[2025-03-26 08:13] LABS: Blood Urea Nitrogen 10 mg/dl (9-20); Creatinine,Serum 1.00 mg/dl (0.66-1.25); Estimated Glomerular Filt Rate 91 ml/min (>60); GFR (African American) 110 ML/MIN (>60)
--- NOTE | 2025-03-26 08:30 | CT_ITS ---
FINAL REPORT TECHNIQUE: Oral and IV contrast enhanced exam This study was performed with techniques to keep radiation doses as low as reasonably achievable, (ALARA). Individualized dose reduction techniques using automated exposure control or adjustment of mA and/or kV according to the patient's size were employed. CLINICAL HISTORY: ruq abd pain COMPARISON: None FINDINGS: Abdomen: Lung bases are clear. The gallbladder is unremarkable. There is fatty infiltration of the liver. The spleen, pancreas and adrenal glands are unremarkable. Kidneys show no mass or obstruction. No bowel obstruction or fluid collection is seen. Pelvis: No evidence of appendicitis is identified. The bladder and prostate are unremarkable in appearance. Pelvic bowel loops are unremarkable. No fluid collection or adenopathy is seen. IMPRESSION: Unremarkable CT evaluation of the abdomen and pelvis Reviewed, Interpreted and Dictated by Anand Narayan MD Transcribed by Mely Mcmillan Authenticated and [facility]
[2025-03-26] MEDS: IOPAMIDOL-370 (76%);100ML BOTTLE 75 ML IV (08:40)
[2025-03-26] MEDS: BARIUM SULFATE(READI-CAT2);450ML BOTTLE 450 ML PO (08:40)
[2025-03-26] MEDS: SODIUM CHLORIDE 0.9% 10ML SYR (RAD ONLY) 10 ML IV (08:40)
== END 2025-03-26 23:59 | disposition home or self-care (01) ==
LOC: RAD 07:36
PROVIDERS: PCP Nurse Practitioner Family; Visit Provider Surgery
DX: K76.0 Fatty (change of) liver, not elsewhere classified (principal); R93.2 Abnormal findings on diagnostic imaging of liver and biliary tract; R10.11 Right upper quadrant pain
CPT/HCPCS: 36415; 74177; 76705; 82565; 84520; Q9967

== ENCOUNTER 2025-04-02 10:44 | Outpatient (CLI) | payer OTHER, SELFPAY ==
--- NOTE | 2025-04-02 10:30 | NM_ITS ---
FINAL REPORT CLINICAL HISTORY: nausea 10:55am 7.86 mci tc choletec 2.5 mcg cck no pain with cck COMPARISON: 05/19/2024 FINDINGS: Sequential anterior projection images of the abdomen were obtained after the intravenous injection of 7.86 mCi technetium 99m Choletec. There is normal uptake of radiotracer by the liver. The bile ducts are visualized by 10 minutes. Gallbladder activity is seen by 10 minutes. Bowel activity is noted by 20 minutes. After 1 hour, 2.5 ?g of CCK was injected intravenously for calculation of gallbladder ejection fraction. The gallbladder ejection fraction is 28%, which is processed. These findings were also present in the prior hepatobiliary scan of 05/19/2024. IMPRESSION: No evidence of cystic duct or bile duct obstruction. Depressed gallbladder ejection fraction of 28%, nonspecific, but may be seen with chronic cholecystitis. Reviewed, Interpreted and Dictated by Víctor Wolf MD Transcribed by Mely Mcmillan Authenticated and [facility]
--- OUTSIDE RECORDS SUMMARY | 2025-04-02 11:03 | XMS_ITS | Data Portability ---
Author Organization [place] - [facility] Address [address] [place] [address] Assessment No assessment recorded. Plan of Treatment [...] By Organization Details Last Modified Time 07/15/2023 [id number] I have personall y reviewed the data obtained and entered from the scribe, outside medical sales representative or nurse for this patient for this patient encounter. Discussed with patient. Patient to consider audiogram. Patient with residual palsy may take another 3-4 weeks to resolve. Patient to follow-up after audiogram. Not available 07/15/2023 08:30:33 08/18/2023 [id number] I have personall y reviewed the data obtained and entered from the scribe, outside medical sales representative or nurse for this patient for this patient encounter. Discussed with the patient. Patient with improvement. Audiologic thresholds within normal limits. Patient to follow-up as needed. Not available 08/18/2023 09:21:04 Reason for Referral None Reported. Results Created Date Observation Date Name Description Value Unit Range Abnormal Flag Note LastModifiedBy Organization Detail LastModifiedTime 08/18/19 24 08/18/2023 audio gram No observ ation record ed. [email or web address] Not Available 2023 09:05:30 Result Notes None [...] Updated DateTime 07/15/2023 185.42 cm 35.1 kg/m2 568180.57 g [facility] [place] 07/15/2023 08:12:33 Date Recorded Body height Body mass index (BMI) Body weight Provider Name and Address Organization Details Last Updated DateTime 08/18/2023 185.42 cm 35.2 kg/m2 840891.16 g [facility] [place] 08/18/2023 09:15:46 Social History None recorded. Functional Status None recorded. Mental Status None recorded. Family History Nothing Reported. Medical History No medical history recorded. Past Encounters Encounter ID Performer Location Encounter Start Date Encounter Closed Date Diagnosis/Indication Diagnosis SNOMED-CT Code Diagnosis ICD10 Code Diagnosis IMO Codes Diagnosis Note [id number] MD BUCK Bautista [address] HOLMAN [address] [place] [address] 07/15/2023 07:52:17 07/15/2023 08:27:06 Facial palsy 123172559 G51.0 [id number] MD BUCK Bautista [address] HOLMAN [address] [place] [address] 08/18/2023 08:55:45 08/18/2023 09:27:40 Facial palsy 646853310 G51.0 [id number] BLANCA MIN [address] [place] [address] 08/18/2023 08:55:16 08/18/2023 09:05:39 Hearing examination 060360465 Z01.10 Health Concerns Section Related Observation LastModified by Organization Detai ls LastModified Time None Recorded Concern Status LastModified by Organization Details LastModified Time None Recorded Advance Directives Directive None Recorded Payers Insurance Date Sequence Insurance Name Policy Number Policy Billings Covered Member ID Billings Member ID Guarantor Name 09/01/2023 2 [facility]NA [facility] (MEDICAID HMO) Alonso Mclaughlin [id number] Alonso Mclaughlin 08/31/2023 1 [employer] [id number] Alonso Mclaughlin [id number] Alonso Mclaughlin Notes Date Note Type Note Provider Name and Address Organization Details Recorded Time 07/15/2023 text/html Patient is here for bells palsy, states he was diagnosed in the ER but has since resolved. Patient presents in follow-up. Dheeraj Hernandez MD [address] [place] [address],[address], [place], [address], [facility] [place] 07/15/2023 08:31:03 08/18/2023 text/html Mr. Mclaughlin was [...] with Dr. Hernandez this date. BLANCA MIN [address] [place] [address],[address], [place], [address], [facility] [place] 08/18/2023 09:05:33 08/18/2023 text/html Patient is here for follow up, states his facial palsy has resolved. Patient presents in follow-up. Dheeraj Hernandez MD [address] [place] [address],[address], [place], [address], [facility] [place] 08/18/2023 09:21:31
[2025-04-02] MEDS: SINCALIDE 2.5 MCG in 0.9 % SODIUM CHLORIDE 50 ML 100 MCG IV (12:46)
[2025-04-02] MEDS: SODIUM CHLORIDE 0.9% 10ML SYR (RAD ONLY) 10 ML IV (12:47)
[2025-04-02] MEDS: ISOTOPE CHOLETECH;1 DOSE (UP TO 15 MCI) IV (12:47)
== END 2025-04-02 23:59 | disposition home or self-care (01) ==
LOC: RAD 10:45
PROVIDERS: PCP Nurse Practitioner Family; Visit Provider Surgery
DX: K82.8 Other specified diseases of gallbladder (principal); R11.0 Nausea
CPT/HCPCS: 78227; A9537; J2805

== ENCOUNTER 2025-04-25 09:00 | Outpatient (RCR) | payer OTHER, SELFPAY | END 2025-04-25 23:59 | disposition home or self-care (01) | LOC: PT 09:00 | PROVIDERS: PCP Nurse Practitioner Family; Visit Provider Nurse Practitioner Family | DX: M25.512 Pain in left shoulder (principal) | CPT/HCPCS: 97014; 97110; G0283 ==

== ENCOUNTER 2025-05-07 10:50 | Outpatient (RCR) | payer OTHER, SELFPAY | END 2025-05-07 23:59 | disposition home or self-care (01) | LOC: PT 10:50 | PROVIDERS: PCP Nurse Practitioner Family; Visit Provider Nurse Practitioner Family | DX: M89.8X1 Other specified disorders of bone, shoulder (principal) | CPT/HCPCS: 97014; 97110; 97140; G0283 ==